=== PATIENT | female | born 1990 | race Hispanic/Latino ===

== ENCOUNTER 2017-07-03 06:42 | Inpatient (IN) | payer OTHER ==
[2017-07-02 15:20] LABS: BASOPHILS # (AUTO) 0.1 (0.0-0.1); BASOPHILS % 0.7 % (0.0-1.0); EOSINOPHILS # (AUTO) 0.1 (0.0-0.4); EOSINOPHILS % 1.3 % (0.0-6.0); HEMATOCRIT 40.1 % (34.2-44.1); HEMOGLOBIN 13.1 g/dL (12.0-16.0); LYMPHOCYTES # (AUTO) 1.9 (1.0-3.2); LYMPHOCYTES % 27.9 % (18.0-39.1); MEAN CORPUSCULAR HEMOGLOBIN 27.5 pg (28-32); MEAN CORPUSCULAR HGB CONC 32.7 g/dL (31-35); MEAN CORPUSCULAR VOLUME 84.2 fL (81-99); MONOCYTES # (AUTO) 0.7 (0.2-0.8); MONOCYTES % 10.5 % (4.4-11.3); NEUTROPHILS # (AUTO) 4.1 (2.1-6.9); NEUTROPHILS % 59.2 % (38.7-80.0); PLATELET COUNT 270 x10e3/uL (140-360); RED BLOOD COUNT 4.76 x10e6/uL (3.6-5.1); RED CELL DISTRIBUTION WIDTH 14.3 % (11.7-14.4)
[2017-07-02 15:26] LABS: BILIRUBIN,URINE NEGATIVE (NEGATIVE); CLARITY,URINE SL CLOUDY (CLEAR); COLOR,URINE YELLOW (YELLOW); KETONES,URINE NEGATIVE (NEGATIVE); LEUKOCYTE ESTERASE ,URINE NEGATIVE (NEGATIVE); NITRITE,URINE NEGATIVE (NEGATIVE); PROTEIN,URINE DIPSTICK NEGATIVE (NEGATIVE); URINE UROBILINOGEN 0.2 mg/dL (0.2 - 1)
[2017-07-02 15:46] LABS: HIV 1&2 AB SCREEN NON-REACTIVE (NONREACTIVE)
--- NOTE | 2017-07-02 15:49 | Diagnostic Imaging Report ---
PROCEDURE: Frontal and lateral views of the chest. COMPARISON: None. INDICATIONS: PRE-OPERATIVE X-RAY FOR OVARIAN MASS SURGERY FINDINGS: Lines/tubes: None. Lungs: The lungs are well inflated and clear. There is no evidence of pneumonia or pulmonary edema. Pleura: There is no pleural effusion or pneumothorax. Heart and mediastinum: The heart and the mediastinum are normal. Bones: No acute bony abnormality. IMPRESSION: 1. No acute cardiopulmonary disease. Dictated by: Shai Hwnag M.D. on 07/02/2017 at 15:51 Electronically approved by: Shai Hwang M.D. on 07/02/2017 at 15:51
[~2017-07-03] VITALS: Ht 165.1 cm; Wt 76.2 kg
[~2017-07-03 06:42] MED LIST: ADDERALL 15 MG15 MG PO; CEFOXITIN SOD 1 GM VIAL ONE
--- OUTSIDE RECORDS SUMMARY | 2017-07-03 06:45 | XMS REPORT ---
Author [facility] Address Unknown Phone Unavailable Care Team Providers Care Supervising Airplane Pilot Name Role Phone ABBY BERTA Unavailable Unavailable Problems This patient has no known problems. Allergies, Adverse Reactions, Alerts This patient has no known allergies or adverse reactions. Medications This patient has no known medications. Results Test Description Test Time Test Comments Text Results Atomic Results Result Comments CHEST 2 VIEWS [place] [address] Patient Name: REMIGIO ABEBE MR #: [id number] : 1990 Age/Sex: 27/F Req # : [id number] Adm Physician: Ordered by: BERTA MORA MD Report #: [id number] Location: OR Room/Bed: Procedure: [id number] DX/CHEST 2 VIEWS Exam Date: 07/02/17 Exam Time: 1526 REPORT STATUS: Signed PROCEDURE: Frontal and lateral views of the chest. COMPARISON: None. INDICATIONS: PRE-OPERATIVE X-RAY FOR OVARIAN MASS SURGERY FINDINGS: Lines/tubes: None. Lungs: The lungs are well inflated and clear. There is no evidence of pneumonia or pulmonary edema. Pleura: There is no pleural effusion or pneumothorax. Heart and mediastinum: The heart and the mediastinum are normal. Bones: No acute bony abnormality. IMPRESSION: 1. No acute cardiopulmonary disease. Dictated by: Shai Hwang M.D. on 2017 at 15:51 Electronically approved by: Shai Hwang M.D. on 2017 at 15:51 Dictated By: SHAI HWANG MD 50 Transcribed By: JESSIKA on 07/02/171550 COPY TO: BERTA MORA MD
--- NOTE | 2017-07-03 08:47 | Diagnostic Imaging Report ---
PROCEDURE:TRANSVAGINAL ULTRASOUND pelvis COMPARISON:None. INDICATIONS:Right Ovarian Mass TECHNIQUE: Limited Grayscale color and transvaginal ultrasound pelvis FINDINGS: Uterus: Not imaged Right ovary: 4.3 x 3.6 x 3.7 heterogeneous mass in the right adnexa. Ovary not independently viewed. Left ovary: Normal, with multiple follicles and a 1.6 cm simple cyst. CONCLUSION: 4.3 cm right adnexal mass. Dictated by: Ramón Girard M.D. on 07/03/2017 at 8:49 Electronically approved by: Ramón Girard M.D. on 07/03/2017 at 8:49
[2017-07-03] MEDS ORDERED: BUPIVACAINE HCL 0.5% INJ 30 ML VIAL INJ ONE (09:55)
[2017-07-03] MEDS ORDERED: DIPHENHYDRAMINE HCL 25 MG CAP PO PRN ×2 (10:30→10:45)
[2017-07-03] MEDS ORDERED: HYDROMORPHONE 1MG/1ML INJ IV PRN (10:30)
[2017-07-03] MEDS ORDERED: BISACODYL 5 MG TAB EC PO PRN (10:30)
[2017-07-03] MEDS ORDERED: PROMETHAZINE HCL (IM) 25 MG/ML VIAL IV PRN (10:30)
[2017-07-03] MEDS ORDERED: DOCUSATE SODIUM 100 MG CAP PO PRN (10:30)
[2017-07-03] MEDS ORDERED: KETOROLAC TROMETHAMINE 30 MG/ML VIAL IM PRN (10:30)
[2017-07-03] MEDS ORDERED: ONDANSETRON HCL INJ 2 MG/ML VIAL IV PRN ×2 (10:30→10:45)
[2017-07-03] MEDS ORDERED: NALOXONE HCL INJ 0.4 MG/ML AMP IV PRN (10:45)
[2017-07-03] MEDS ORDERED: KETOROLAC TROMETHAMINE 30 MG/ML VIAL IV PRN (10:45)
[2017-07-03] MEDS ORDERED: ACETAMINOPHEN 1000 MG/100 ML IV PRN (10:45)
[2017-07-03] MEDS ORDERED: HYDROMORPHONE 0.2MG/ML-SOD CHL 30ML PCA SYRINGE IV PRN (10:45)
[2017-07-03] MEDS ORDERED: FENTANYL CITRATE/PF 100MCG/2 ML INJ ONE ×2 (10:50→18:42)
[2017-07-03] MEDS ORDERED: PROMETHAZINE 12.5MG/ NACL 0.9% 50 ML IV PRN (11:00)
--- NOTE | 2017-07-03 11:01 | Operative Report ---
DATE OF PROCEDURE: July 03, 2017 PREOPERATIVE DIAGNOSIS: A 26-year-old female, 1, para 0, with right adnexal solid mass, possible right ovarian dermoid cyst around 5 cm size. POSTOPERATIVE DIAGNOSES 1. A 26-year-old female, 1, para 0, with right adnexal solid mass, possible right ovarian dermoid cyst around 5 cm size. 2. Right paratubal cyst. 3. Left paratubal cyst. 4. Small simple left ovarian cyst. OPERATIVE PROCEDURES DONE 1. Examination under anesthesia. 2. Exploratory laparotomy. 3. Excision of right ovarian dermoid cyst, right ovarian mass/dermoid cyst. 4. Reconstruction of the right ovary. 5. Excision of right paratubal cyst. 6. Excision of left paratubal cyst. 7. Aspiration of left ovarian simple cyst. 8. Adhesiolysis. HELPER SHEAR OPERATOR: Dr. Bobby MD ANESTHESIA: General. FINDINGS: At the time of surgery, on EUA the cervix looks normal. Uterus feels normal size. Right adnexal mass. The ovary feels like around 5-6 cm size. Left feels normal. On laparotomy, there was some flimsy adhesions between the right ovarian mass, right ovary and the tube and mesosalpinx. The mass in the right ovary is enlarged, about 6-7 cm size. Difficult to identify the ovarian tissue. There is a paratubal cyst next to the right tube. There is one paratubal cyst on the left side. There is a small simple cyst on the left ovary that was drained of clear fluid. Otherwise, the left ovary looks normal. The flimsy adhesions from the mass and to the parametrium and mesosalpinx, and then excised the mass and reconstructed the right ovary and removed the paratubal cyst on the left side and right side. ESTIMATED BLOOD LOSS: Minimal, less than 50 mL. The Crisostomo catheter in the bladder draining clear urine. COUNTS: Instrument and swab counts are correct. COMPLICATIONS: None. PROCEDURE IN DETAIL: The patient was brought to the operating room and put in the supine position, and general anesthesia was given without any problems. After adequate anesthesia, the patient was put in the supine position, prepped and draped in the routine fashion. Crisostomo catheter was in the bladder draining clear urine. Then proceeded with the surgery. Made a small transverse Pfannenstiel skin incision and taken down to the fascia. The fascia was opened in a transverse fashion. The rectus muscles were longitudinally identifying the parietal peritoneum, opened and entered the abdominal cavity without any problems. Then felt the right adnexal mass. It was difficult to bring it out on to the surface because of the adhesions. Therefore, put in the O'Dell-O'Kessler retractor, and packed the bowels up, and put in an upper blade and the lower blade. Then the flimsy adhesions between the tube and mesosalpinx and the ovarian mass are gently. Then wet laps placed all around the mass in case if a spill happens. I then proceeded with the surgery. Made a small incision over the ovary with a knife. It was difficult to identify the normal ovarian tissue. Then started dissecting the capsule and gently dissected the capsule and the mass from the ovary. Almost towards the end, it started leaking sebaceous material. The edges were grabbed with Allis clamp so that there is no more spill. Then further dissection done and removed the mass from the ovary. The dissection was done with small fine scissors, and used the Bovie for hemostasis as needed, pin point. The mass was removed. The ovarian tissue looks normal. There was a little bleeding from the edges and hemostasis was secured with the Bovie. I then reconstructed the ovary with 3-0 chromic with continuous stitches. Hemostasis was good. The ovary looks normal. Irrigated with a copious amount of saline. Then removed the right paratubal cyst with Bovie. Hemostasis was good. Then removed the left-sided paratubal cyst, and both of them sent separate for pathology. Ovarian mass sent for pathology. I then checked again for hemostasis. It was good. Irrigated again with copious amount of fluid after making sure hemostasis was good. The spill was very little, less than 1-2 mL. The laps were all around. Thus, we did not get into the peritoneal cavity. I then irrigated. All the laps removed. The O'Dell-O'Kessler retractor removed. Irrigated again, and then closed the abdominal wall in layers. Parietal peritoneum closed with 2-0 and 3-0 Vicryl with continuous stitches. Fascia closed with 1 Vicryl using 2 sutures starting at the corners and ending in the midline. Injected local 0.5% Marcaine of 20 mL into the muscle and fascia and the incision for postop pain relief. Then subcutaneous tissue approximated with 2-0 Vicryl with continuous stitches. Skin approximated with 4-0 Vicryl using subcuticular stitches. The patient tolerated the procedure well. There were no complications. Estimated blood loss was less than 50 mL. Urine clear in the Crisostomo bag. The patient moved to the recovery room in a stable condition. Job#: [id number]
[2017-07-03 12:20] VITALS: BP 126/76
[2017-07-03 12:30] VITALS: BP 126/76
[2017-07-03] MEDS: HYDROMORPHONE 2MG/ML INJ IV PRN ×3 (13:00→23:30)
[2017-07-03] MEDS: D5.45%NS/KCL 20MEQ 1,000 ML IV SCH ×2 (13:00→23:50)
[2017-07-03 16:49] VITALS: BP 112/67
[2017-07-03] MEDS ORDERED: MIDAZOLAM HCL 2 MG/2 ML VIAL ONE (18:42)
[2017-07-03] MEDS ORDERED: ONDANSETRON HCL INJ 2 MG/ML VIAL ONE (18:59)
[2017-07-03] MEDS ORDERED: GLYCOPYRROLATE INJ 1MG/ 5 ML SYR ONE (18:59)
[2017-07-03] MEDS ORDERED: ROCURONIUM BROMIDE 10 MG/ML 5ML VIAL ONE (18:59)
[2017-07-03] MEDS ORDERED: ACETAMINOPHEN 1000 MG/100 ML IV ONE (18:59)
[2017-07-03] MEDS ORDERED: PROPOFOL IV EMULSION 10 MG/ML 20 ML VIAL ONE (18:59)
[2017-07-03] MEDS ORDERED: SEVOFLURANE INHAL SOLN 250 ML PEN BTL ONE (18:59)
[2017-07-03] MEDS ORDERED: DEXAMETHASONE SOD PHOS INJ 4 MG/ML VIAL ONE (18:59)
[2017-07-03] MEDS ORDERED: LIDOCAINE HCL 2% LOCAL INJ 5 ML SDV VIAL INJ ONE (18:59)
[2017-07-03] MEDS ORDERED: NEOSTIGMINE 5 MG/5ML SYR ONE (18:59)
[2017-07-03 20:10] VITALS: BP 113/66
[2017-07-03] MEDS ORDERED: ZOLPIDEM TARTRATE 5 MG TAB PO PRN (21:00)
[2017-07-03] MEDS: ONDANSETRON HCL 4 MG ORAL DISINTEGRATING TAB PO PRN (23:30)
[2017-07-04] VITALS: BP 125/60
[2017-07-04] MEDS: HYDROMORPHONE 2MG/ML INJ IV PRN ×3 (03:25→11:39)
[2017-07-04] MEDS: ONDANSETRON HCL 4 MG ORAL DISINTEGRATING TAB PO PRN (03:25)
[2017-07-04 04:00] VITALS: BP 116/76
[2017-07-04 06:43] LABS: BASOPHILS % 0.4 % (0.0-1.0); EOSINOPHILS % 0.5 % (0.0-6.0); HEMOGLOBIN 11.1 g/dL (12.0-16.0); LYMPHOCYTES # (AUTO) 2.7 (1.0-3.2); LYMPHOCYTES % 32.1 % (18.0-39.1); MEAN CORPUSCULAR HEMOGLOBIN 27.8 pg (28-32); MEAN CORPUSCULAR HGB CONC 32.6 g/dL (31-35); MONOCYTES # (AUTO) 1.1 (0.2-0.8); MONOCYTES % 12.9 % (4.4-11.3); NEUTROPHILS # (AUTO) 4.6 (2.1-6.9); NEUTROPHILS % 53.9 % (38.7-80.0); PLATELET COUNT 239 x10e3/uL (140-360)
[2017-07-04 08:22] VITALS: BP 118/77
[2017-07-04] MEDS ORDERED: CEFOXITIN SOD 1 GM VIAL IV NR ×2 (11:45→12:45)
[2017-07-04] MEDS ORDERED: CEFOXITIN 1GM/ DEXTROSE 50ML 50 ML IV SCH (11:45)
[2017-07-04 11:55] VITALS: BP 102/58
[2017-07-04] MEDS ORDERED: vicodin PO (12:53)
[2017-07-04] MEDS ORDERED: COLACE100 MG PO (12:53)
[2017-07-04] MEDS ORDERED: MOTRIN200 MG PO (12:53)
== END 2017-07-04 13:40 | disposition home or self-care (01) | DRG 743 ==
LOC: OR 06:42 → IMCU 12:17 → OBSVTOIN 12:17
PROVIDERS: ADMIT Specialist; ATTEND Specialist
PROC: 0UB70ZZ Excision of Bilateral Fallopian Tubes, Open Approach (ICD-10-PCS; 2017-07-03)
PROC: 0U910ZZ Drainage of Left Ovary, Open Approach (ICD-10-PCS; 2017-07-03)
PROC: 0UB00ZZ Excision of Right Ovary, Open Approach (ICD-10-PCS; principal; 2017-07-03 08:00)
DX: D27.0 Benign neoplasm of right ovary (principal); N83.8 Other noninflammatory disorders of ovary, fallopian tube and broad ligament; M34.9 Systemic sclerosis, unspecified; N83.202 Unspecified ovarian cyst, left side
CPT/HCPCS: 36415; 71046; 76830; 81003; 84702; 85025; 86850; 86870; 86880; 86900; 86905; 86920; 86922; 87390; 88304; 88305; 93005; 99001; G0433; G0435; J0694; J1100; J1885; J2001; J2250; J2405